=== PATIENT | male | born 1955 | race Caucasian/White ===

== ENCOUNTER 2018-05-21 15:50 | Observation (INO) ==
--- NOTE | 2018-05-21 16:18 | Emergency Department Note ---
Disposition Clinical Impression: Hypokalemia Sepsis Qualifiers: Sepsis type: sepsis due to unspecified organism Qualified Code(s): A41.9 - Sepsis, unspecified organism Cellulitis Qualifiers: Site of cellulitis: extremity Site of cellulitis of extremity: lower extremity Laterality: left Qualified Code(s): L03.116 - Cellulitis of left lower limb UTI (urinary tract infection) Qualifiers: Urinary tract infection type: site unspecified Hematuria presence: without hematuria Qualified Code(s): N39.0 - Urinary tract infection, site not specified Disposition: Admitted As Inpatient Condition: Fair Referrals: Boyd Chacon MD [Primary Care Provider] - Forms: ED Satisfaction Letter Time of Disposition: 17:42 Extremity Problem HPI - General Chief complaint: ED Extremity Problem,Nontraumatic Stated complaint: cellulitis LLE and possible sepsis Time Seen by Provider: 05/21/18 16:18 Source: patient Mode of arrival: ambulatory Limitations: no limitations Nursing Notes Reviewed: Yes Vital Signs Reviewed: Yes - History of Present Illness HPI Narrative: Patient is a 62-year-old male with past medical history of TIA, gout, hypertension. He presents today due to concern for left lower extremity cellulitis, possible sepsis. He was a referral from his primary care physician Dr. Chacon with concern for sepsis. Patient states that he has a history of left lower 70 cellulitis. He was treated about 3 months ago with an oral antibiotic and states that it cleared up. However, he has had some redness over the past several days of the left lower extremity. He has felt generally overall unwell, fatigue, decreased appetite. Denies any chest pain, shortness of breath, productive cough, nausea, vomiting, fevers, diarrhea. Denies any hematuria but does admit to some mild dysuria. No other penile discharge. He is not currently on any antibiotics. Pain Scale: 0 - Related Data Allergies Allergy/AdvReac Type Severity Reaction Status Date / Time lisinopril Allergy Hives Verified 05/21/18 15:51 All systems ED: reviewed and negative except as stated. Constitutional: Denies: fever Cardiovascular: Denies: chest pain, palpitations Respiratory: Denies: cough, dyspnea, wheezes Gastrointestinal: Denies: abdominal pain, nausea, vomiting, diarrhea, constipation Genitourinary: Reports: dysuria. Denies: urgency, frequency, hematuria Musculoskeletal: Denies: back pain Integumentary: Denies: rash Neurological: Denies: headache, weakness, numbness Endocrine: Reports: fatigue Past Medical History - Past Medical History Attestation: Yes The following information was validated with the patient. Source: patient Physical Exam - General Limitations: no limitations General appearance: alert, in no apparent distress - Head Head exam: atraumatic, normocephalic, normal inspection - Eye Eye exam: Present: normal appearance, PERRL, EOMI - ENT ENT exam: normal exam, normal oropharynx, mucous membranes moist - Neck Neck exam: Present: normal inspection, full ROM, trachea midline - Chest Chest inspection: Present: normal inspection, symmetric chest wall rise - Respiratory Respiratory exam: Present: normal lung sounds bilaterally - Cardiovascular Cardiovascular exam: Present: regular rate, normal rhythm, normal heart sounds - Abdominal Exam Abdominal exam: Present: soft, Non-Tender. Absent: tenderness, distention, guarding, rebound, rigidity - Extremities Exam Extremities exam: Present: other (Erythema of the left lower extremity from mid calf down to ankle. Also erythema of the left great toe. Bilateral foot gouty arthropathy. No crepitus.) - Neurological Exam Neurological exam: Present: alert, oriented X3 - Psychiatric Psychiatric exam: Present: normal affect, normal mood - Skin Skin exam: Present: warm, dry, intact Course Course Narrative: Patient was febrile, tachycardic on presentation. Physical exam shows: Erythema of the left lower extremity from mid calf down to ankle. Also erythema of the left great toe. Bilateral foot gouty arthropathy. No crepitus. Currently concern for sepsis secondary to left lower extremity cellulitis. We will set the patient on vancomycin and Zosyn. We will give the patient sepsis fluid bolus, obtain basic lab work, lactic, blood cultures, CRP, ESR, blood cultures. We will also obtain an x-ray of the left tib-fib and left foot to assess for any gas. 17:31 patient given Tylenol for fever. patient had elevated white blood cell count. UA shows positive nitrite and leukocyte Estrace. Patient already covered with vancomycin and Zosyn. X-rays showed no evidence of any subcutaneous gas. There is evidence of cellulitis. Patient meets sepsis criteria. We will admit to the hospital for cellulitis/sepsis. Patient also had hypokalemia. Oral replacement ordered in the ER. Foot X-Ray 05/21/18 16:39 IMPRESSION: 1. Evidence of tophaceous gout involving the 1st MTP joint. 2. Soft tissue swelling involving the left 1st digit, which could be related cellulitis. No subcutaneous gas is visualized. D/ / Giovanni Cruz MD / Giovanni Cruz MD Interpreting Provider: Giovanni Cruz MD Tibia/Fibula X-Ray 05/21/18 16:39 IMPRESSION: 1. Evidence of tophaceous gout involving the 1st MTP joint. 2. Soft tissue swelling involving the left 1st digit, which could be related cellulitis. No subcutaneous gas is visualized. D/ / Giovanni Cruz MD / Giovanni Cruz MD Interpreting Provider: Giovanni Cruz MD Vital Signs Temperature 100.2 F H 05/21/18 15:52 Pulse Rate 119 05/21/18 15:52 Respiratory Rate 20 05/21/18 15:52 Blood Pressure 190/90 05/21/18 15:52 O2 Sat by Pulse Oximetry 95 05/21/18 15:52 Temperature 100.2 F H 05/21/18 16:17 Pulse Rate 107 05/21/18 17:36 Respiratory Rate 20 05/21/18 16:27 Blood Pressure 132/96 05/21/18 17:36 O2 Sat by Pulse Oximetry 96 05/21/18 17:36 Oxygen Delivery Oxygen Delivery Room Air Extremity Problem, Nontraumati - [facility] Narrative Medical decision making narrative: Patient was febrile, tachycardic on presentation. Physical exam shows: Erythema of the left lower extremity from mid calf down to ankle. Also erythema of the left great toe. Bilateral foot gouty arthropathy. No crepitus. Currently concern for sepsis secondary to left lower extremity cellulitis. We will set the patient on vancomycin and Zosyn. We will give the patient sepsis fluid bolus, obtain basic lab work, lactic, blood cultures, CRP, ESR, blood cultures. We will also obtain an x-ray of the left tib-fib and left foot to assess for any gas. 17:31 patient given Tylenol for fever. patient had elevated white blood cell count. UA shows positive nitrite and leukocyte Estrace. Patient already covered with vancomycin and Zosyn. X-rays showed no evidence of any subcutaneous gas. There is evidence of cellulitis. Patient meets sepsis criteria. We will admit to the hospital for cellulitis/sepsis. Patient also had hypokalemia. Oral replacement ordered in the ER. - Medical Records Medical records reviewed: Yes I reviewed the patient's medical records. - Lab Data Lab results reviewed: Yes I reviewed the patient's lab results. Result diagrams: 05/21/18 16:05 05/21/18 16:33 Lab Results 05/21/18 05/21/18 05/21/18 Range/Units 16:05 16:05 16:05 WBC 13.3 H (4.3-11.1) K/mcL RBC 4.62 (4.19-5.50) M/mcL Hgb 15.2 (12.9-16.9) g/dL Hct 42.0 (37.5-50.1) % MCV 90.9 (83.0-100.0) fL MCH 32.9 (28.0-33.3) pg MCHC 36.2 H (31.6-35.5) g/dL RDW 12.1 (11.5-14.5) % Plt Count 146 (140-400) K/mcL MPV 9.9 (9.4-12.4) fL Immature Gran % 0.5 (0-4) % Seg Neutrophils % 89.7 % Lymphocytes % 2.4 % Monocytes % 6.9 % Eosinophils % 0.2 % Basophils % 0.3 % Neutrophils # 11.9 H (1.6-8.9) K/mcL Lymphocytes # 0.3 L (0.6-4.6) K/mcL Monocytes # 0.9 (0.0-1.3) K/mcL Eosinophils # 0.0 (0.0-0.6) K/mcL Basophils # 0.0 (0.0-0.2) K/mcL ESR 8 (0-10) mm/hr PT 13.6 H (9.4-12.1) Seconds INR 1.2 APTT 28.9 (26.0-36.0) Seconds Sodium (136-145) mEq/L Potassium (3.5-5.1) mEq/L Chloride (98-107) mEq/L Carbon Dioxide (23-29) mEq/L BUN (8-23) mg/dL Creatinine (0.70-1.30) mg/dL Est GFR ( Amer) (> 60) Est GFR (Non-Af Amer) (> 60) BUN/Creatinine Ratio (6-26) Glucose (70-105) mg/dL Calculated Osmolality (280-300) Lactic Acid (0.5-2.2) mmol/L Uric Acid (2.3-7.6) mg/dL Calcium (8.6-10.3) mg/dL Phosphorus (2.7-4.5) mg/dL Magnesium (1.6-2.6) mg/dL Total Bilirubin (0.3-1.0) mg/dL Direct Bilirubin (0.0-0.2) mg/dL Indirect Bilirubin (0.0-1.2) mg/dL AST (13-39) Units/L ALT (7-52) Units/L Alkaline Phosphatase (34-104) Units/L Troponin I (< 0.04) ng/mL C-Reactive Protein (Less than 10) mg/L Serum Total Protein (6.4-8.9) g/dL Albumin (3.5-5.7) g/dL Globulin (2.4-3.5) g/dL Albumin/Globulin Ratio (1.1-2.2) Urine Color (Yellow) Urine Clarity (Clear) Urine pH (5.0-8.0) pH Units Ur Specific [place] (1.010-1.025) Urine Protein (Neg-Trace) mg/dL Urine Glucose (UA) (Normal) mg/dL Urine Ketones (Negative) mg/dL Urine Blood (Negative) Urine Nitrite (Negative) Urine Bilirubin (Negative) Urine Urobilinogen (Normal) mg/dL Ur Leukocyte Esterase (Negative) Urine Microscopic RBC (0-3) per hpf Urine Microscopic WBC (0-3) per hpf Ur Squamous Epith Cells (None-Few) per lpf Urine Bacteria (None-Few) per hpf Hyaline Casts (None-Few) per lpf Urine Mucus (Few) Ur Culture Indicated? (NO) 05/21/18 05/21/18 05/21/18 Range/Units 16:33 16:33 16:48 WBC (4.3-11.1) K/mcL RBC (4.19-5.50) M/mcL Hgb (12.9-16.9) g/dL Hct (37.5-50.1) % MCV (83.0-100.0) fL MCH (28.0-33.3) pg MCHC (31.6-35.5) g/dL RDW (11.5-14.5) % Plt Count (140-400) K/mcL MPV (9.4-12.4) fL Immature Gran % (0-4) % Seg Neutrophils % % Lymphocytes % % Monocytes % % Eosinophils % % Basophils % % Neutrophils # (1.6-8.9) K/mcL Lymphocytes # (0.6-4.6) K/mcL Monocytes # (0.0-1.3) K/mcL Eosinophils # (0.0-0.6) K/mcL Basophils # (0.0-0.2) K/mcL ESR (0-10) mm/hr PT (9.4-12.1) Seconds INR APTT (26.0-36.0) Seconds Sodium 133 L (136-145) mEq/L Potassium 3.1 L (3.5-5.1) mEq/L Chloride 98 (98-107) mEq/L Carbon Dioxide 25 (23-29) mEq/L BUN 11 (8-23) mg/dL Creatinine 0.99 (0.70-1.30) mg/dL Est GFR ( Amer) > 60 (> 60) Est GFR (Non-Af Amer) > 60 (> 60) BUN/Creatinine Ratio 11 (6-26) Glucose 150 H (70-105) mg/dL Calculated Osmolality 278 L (280-300) Lactic Acid 1.0 (0.5-2.2) mmol/L Uric Acid 7.3 (2.3-7.6) mg/dL Calcium 9.3 (8.6-10.3) mg/dL Phosphorus 1.9 L (2.7-4.5) mg/dL Magnesium 1.6 (1.6-2.6) mg/dL Total Bilirubin 2.1 H (0.3-1.0) mg/dL Direct Bilirubin 0.6 H (0.0-0.2) mg/dL Indirect Bilirubin 1.5 H (0.0-1.2) mg/dL AST 31 (13-39) Units/L ALT 27 (7-52) Units/L Alkaline Phosphatase 97 (34-104) Units/L Troponin I < 0.03 (< 0.04) ng/mL C-Reactive Protein 202 H (Less than 10) mg/L Serum Total Protein 7.1 (6.4-8.9) g/dL Albumin 4.4 (3.5-5.7) g/dL Globulin 2.7 (2.4-3.5) g/dL Albumin/Globulin Ratio 1.6 (1.1-2.2) Urine Color Dark Yellow (Yellow) Urine Clarity Cloudy A (Clear) Urine pH 6.0 (5.0-8.0) pH Units Ur Specific [place] 1.024 (1.010-1.025) Urine Protein 100 H (Neg-Trace) mg/dL Urine Glucose (UA) Normal (Normal) mg/dL Urine Ketones 15 H (Negative) mg/dL Urine Blood Negative (Negative) Urine Nitrite Positive A (Negative) Urine Bilirubin Small H (Negative) Urine Urobilinogen Normal (Normal) mg/dL Ur Leukocyte Esterase Moderate H (Negative) Urine Microscopic RBC 3-5 H (0-3) per hpf Urine Microscopic WBC 15-30 H (0-3) per hpf Ur Squamous Epith Cells Many H (None-Few) per lpf Urine Bacteria None Seen (None-Few) per hpf Hyaline Casts None Seen (None-Few) per lpf Urine Mucus Many H (Few) Ur Culture Indicated? NO. A (NO) - Radiology Data Radiology results reviewed: Yes I reviewed the patient's radiology results. Foot X-Ray 05/21/18 16:39 IMPRESSION: 1. Evidence of tophaceous gout involving the 1st MTP joint. 2. Soft tissue swelling involving the left 1st digit, which could be related cellulitis. No subcutaneous gas is visualized. D/ / Giovanni Cruz MD / Giovanni Cruz MD Interpreting Provider: Giovanni Cruz MD Tibia/Fibula X-Ray 05/21/18 16:39 IMPRESSION: 1. Evidence of tophaceous gout involving the 1st MTP joint. 2. Soft tissue swelling involving the left 1st digit, which could be related cellulitis. No subcutaneous gas is visualized. D/ / Giovanni Cruz MD / Giovanni Cruz MD Interpreting Provider: Giovanni Cruz MD - EKG Data EKG attestation: Yes I reviewed and interpreted this EKG. EKG results narrative: 05/21/2018 at 16:36. Sinus tachycardia. Rate 109. VA 156. QRS 93. QTC 3 984. Normal axis. No acute ST elevation or depression. T-wave inversion in lead 3, no previous EKG for comparison. S.Jorge A.Raffaele - Armando Situation: Demographics, MOA Background: Presenting Complaint, Relevant PMH, Meds, & Allergies Assessment: Vital Signs, Course and respsone to treatment, Exam Concerns, Patient/Family Expectation, Pertinant Lab Results Recommendation: Barrier(s) to disposition, Recommendation based on pending studies, treatments, or consults S.B.A.Jose Report Given to: Jabari Roberts [facility] Time: 17:42 Attestation Statement - Attestation Attestation: I, Don Shrestha DO, examined this patient [id number] and my medical decision-making was reviewed with Dr. Power Rico, Resident Physician. I agree with the documented findings, disposition and treatment plan as described except to the extent set forth below. Please see my progress notes for details.
[2018-05-21] MEDS ORDERED: Piperacillin/Tazobactam 3.375 GM in 0.9 % Sodium Chloride Mini Bag 100 ML IVPB ONE (16:39)
[2018-05-21 16:47] LABS: Basophils % 0.3 %; Eosinophils % 0.2 %; Hemoglobin 15.2 g/dL (12.9-16.9); Immature Granulocytes % 0.5 % (0-4); Lymphocytes # 0.3 K/mcL (0.6-4.6); Lymphocytes % 2.4 %; Mean Corpuscular HGB Conc 36.2 g/dL (31.6-35.5); Mean Corpuscular Hemoglobin 32.9 pg (28.0-33.3); Mean Corpuscular Volume 90.9 fL (83.0-100.0); Mean Platelet Volume 9.9 fL (9.4-12.4); Monocytes # 0.9 K/mcL (0.0-1.3); Monocytes % 6.9 %; Neutrophils # 11.9 K/mcL (1.6-8.9); Platelet Count 146 K/mcL (140-400); Red Blood Count 4.62 M/mcL (4.19-5.50); Red Cell Distribution Width 12.1 % (11.5-14.5); Segmented Neutrophils % 89.7 %
[2018-05-21 16:55] LABS: INR 1.2; Prothrombin Time 13.6 Seconds (9.4-12.1)
[2018-05-21 16:58] LABS: Activated Partial Thrombo Time 28.9 Seconds (26.0-36.0)
[2018-05-21 17:01] LABS: Bilirubin,Urine Small (Negative); Blood,Urine Negative (Negative); Clarity,Urine Cloudy (Clear); Glucose,Urine (UA) Normal (Normal); Ketones,Urine 15 mg/dL (Negative); Leukocyte Esterase,Urine Moderate (Negative); Nitrite,Urine Positive (Negative); Protein,Urine 100 mg/dL (Neg-Trace); Specific Gravity,Urine 1.024 (1.010-1.025); Urobilinogen,Urine Normal (Normal)
[2018-05-21 17:02] LABS: Bacteria,Urine None Seen per hpf (None-Few); Squamous Epithelial Cell,Urine Many per lpf (None-Few); WBC,Urine 15-30 per hpf (0-3)
[2018-05-21 17:04] LABS: Color,Urine Dark Yellow (Yellow)
[2018-05-21 17:14] LABS: Hyaline Casts,Urine None Seen per lpf (None-Few); Mucus,Urine Many (Few)
[2018-05-21 17:16] LABS: Alanine Aminotransferase 27 Units/L (7-52); Albumin 4.4 g/dL (3.5-5.7); Albumin/Globulin Ratio 1.6 (1.1-2.2); Alkaline Phosphatase 97 Units/L (34-104); Aspartate Amino Transferase 31 Units/L (13-39); BUN/Creatinine Ratio 11 (6-26); Bilirubin,Direct 0.6 mg/dL (0.0-0.2); Bilirubin,Indirect 1.5 mg/dL (0.0-1.2); Bilirubin,Total 2.1 mg/dL (0.3-1.0); Blood Urea Nitrogen 11 mg/dL (8-23); C-Reactive Protein 202 mg/L (Less than 10); Calcium 9.3 mg/dL (8.6-10.3); Carbon Dioxide 25 mEq/L (23-29); Chloride 98 mEq/L (98-107); Globulin 2.7 g/dL (2.4-3.5); Glucose 150 mg/dL (70-105); Magnesium 1.6 mg/dL (1.6-2.6); Osmolality,Calculated 278 (280-300); Phosphorous 1.9 mg/dL (2.7-4.5); Potassium 3.1 mEq/L (3.5-5.1); Sodium 133 mEq/L (136-145); Total Protein 7.1 g/dL (6.4-8.9); Troponin I < 0.03 ng/mL (< 0.04); Uric Acid 7.3 mg/dL (2.3-7.6); eGFR For African Americans > 60 (> 60); eGFR For Non-African Americans > 60 (> 60)
[2018-05-21] MEDS ORDERED: Potassium Chloride Elixir 20 MEQ/15 ML UDC PO ONE (17:26)
[2018-05-21] MEDS: 0.9 % Sodium Chloride 1,000 ML IVC SCH ×3 (17:32→20:20)
--- NOTE | 2018-05-21 17:50 | Emergency Department Note ---
Disposition Clinical Impression: Hypokalemia Sepsis Qualifiers: Sepsis type: sepsis due to unspecified organism Qualified Code(s): A41.9 - Sepsis, unspecified organism Cellulitis Qualifiers: Site of cellulitis: extremity Site of cellulitis of extremity: lower extremity Laterality: left Qualified Code(s): L03.116 - Cellulitis of left lower limb UTI (urinary tract infection) Qualifiers: Urinary tract infection type: site unspecified Hematuria presence: without hematuria Qualified Code(s): N39.0 - Urinary tract infection, site not specified Disposition: Admitted As Inpatient Condition: Fair Referrals: Boyd Chacon MD [Primary Care Provider] - Forms: ED Satisfaction Letter Time of Disposition: 17:50 General Adult HPI - General Chief complaint: ED Extremity Problem,Nontraumatic Stated complaint: cellulitis LLE and possible sepsis Time Seen by Provider: 05/21/18 16:18 Source: patient Mode of arrival: ambulatory Limitations: no limitations - History of Present Illness Pain Scale: 0 - Related Data Allergies Allergy/AdvReac Type Severity Reaction Status Date / Time lisinopril Allergy Hives Verified 05/21/18 15:51 Constitutional: Denies: fever Cardiovascular: Denies: chest pain, palpitations Respiratory: Denies: cough, dyspnea, wheezes Gastrointestinal: Denies: abdominal pain, nausea, vomiting, diarrhea, constipation Genitourinary: Reports: dysuria. Denies: urgency, frequency, hematuria Musculoskeletal: Denies: back pain Integumentary: Denies: rash Neurological: Denies: headache, weakness, numbness Endocrine: Reports: fatigue Past Medical History - Past Medical History Medical history: Reports: hypertension Psychiatric history: Reports: no psych history - Social History Smoking Status: Never smoker Smokeless Tobacco Status: No Alcohol use: Reports: occasionally Drug use: Reports: none Physical Exam - General Limitations: no limitations General appearance: alert, in no apparent distress Course Vital Signs Temperature 100.2 F H 05/21/18 15:52 Pulse Rate 119 05/21/18 15:52 Respiratory Rate 20 05/21/18 15:52 Blood Pressure 190/90 05/21/18 15:52 O2 Sat by Pulse Oximetry 95 05/21/18 15:52 Temperature 100.2 F H 05/21/18 16:17 Pulse Rate 107 05/21/18 17:36 Respiratory Rate 20 07/19/18 16:27 Blood Pressure 132/96 05/21/18 17:36 O2 Sat by Pulse Oximetry 96 05/21/18 17:36 Oxygen Delivery Oxygen Delivery Room Air Medical Decision Making - Lab Data Result diagrams: 05/21/18 16:05 05/21/18 16:33 Lab Results 05/21/18 05/21/18 05/21/18 Range/Units 16:05 16:05 16:05 WBC 13.3 H (4.3-11.1) K/mcL RBC 4.62 (4.19-5.50) M/mcL Hgb 15.2 (12.9-16.9) g/dL Hct 42.0 (37.5-50.1) % MCV 90.9 (83.0-100.0) fL MCH 32.9 (28.0-33.3) pg MCHC 36.2 H (31.6-35.5) g/dL RDW 12.1 (11.5-14.5) % Plt Count 146 (140-400) K/mcL MPV 9.9 (9.4-12.4) fL Immature Gran % 0.5 (0-4) % Seg Neutrophils % 89.7 % Lymphocytes % 2.4 % Monocytes % 6.9 % Eosinophils % 0.2 % Basophils % 0.3 % Neutrophils # 11.9 H (1.6-8.9) K/mcL Lymphocytes # 0.3 L (0.6-4.6) K/mcL Monocytes # 0.9 (0.0-1.3) K/mcL Eosinophils # 0.0 (0.0-0.6) K/mcL Basophils # 0.0 (0.0-0.2) K/mcL ESR 8 (0-10) mm/hr PT 13.6 H (9.4-12.1) Seconds INR 1.2 APTT 28.9 (26.0-36.0) Seconds Sodium (136-145) mEq/L Potassium (3.5-5.1) mEq/L Chloride (98-107) mEq/L Carbon Dioxide (23-29) mEq/L BUN (8-23) mg/dL Creatinine (0.70-1.30) mg/dL Est GFR ( Amer) (> 60) Est GFR (Non-Af Amer) (> 60) BUN/Creatinine Ratio (6-26) Glucose (70-105) mg/dL Calculated Osmolality (280-300) Lactic Acid (0.5-2.2) mmol/L Uric Acid (2.3-7.6) mg/dL Calcium (8.6-10.3) mg/dL Phosphorus (2.7-4.5) mg/dL Magnesium (1.6-2.6) mg/dL Total Bilirubin (0.3-1.0) mg/dL Direct Bilirubin (0.0-0.2) mg/dL Indirect Bilirubin (0.0-1.2) mg/dL AST (13-39) Units/L ALT (7-52) Units/L Alkaline Phosphatase (34-104) Units/L Troponin I (< 0.04) ng/mL C-Reactive Protein (Less than 10) mg/L Serum Total Protein (6.4-8.9) g/dL Albumin (3.5-5.7) g/dL Globulin (2.4-3.5) g/dL Albumin/Globulin Ratio (1.1-2.2) Urine Color (Yellow) Urine Clarity (Clear) Urine pH (5.0-8.0) pH Units Ur Specific [place] (1.010-1.025) Urine Protein (Neg-Trace) mg/dL Urine Glucose (UA) (Normal) mg/dL Urine Ketones (Negative) mg/dL Urine Blood (Negative) Urine Nitrite (Negative) Urine Bilirubin (Negative) Urine Urobilinogen (Normal) mg/dL Ur Leukocyte Esterase (Negative) Urine Microscopic RBC (0-3) per hpf Urine Microscopic WBC (0-3) per hpf Ur Squamous Epith Cells (None-Few) per lpf Urine Bacteria (None-Few) per hpf Hyaline Casts (None-Few) per lpf Urine Mucus (Few) Ur Culture Indicated? (NO) 05/21/18 05/21/18 05/21/18 Range/Units 16:33 16:33 16:48 WBC (4.3-11.1) K/mcL RBC (4.19-5.50) M/mcL Hgb (12.9-16.9) g/dL Hct (37.5-50.1) % MCV (83.0-100.0) fL MCH (28.0-33.3) pg MCHC (31.6-35.5) g/dL RDW (11.5-14.5) % Plt Count (140-400) K/mcL MPV (9.4-12.4) fL Immature Gran % (0-4) % Seg Neutrophils % % Lymphocytes % % Monocytes % % Eosinophils % % Basophils % % Neutrophils # (1.6-8.9) K/mcL Lymphocytes # (0.6-4.6) K/mcL Monocytes # (0.0-1.3) K/mcL Eosinophils # (0.0-0.6) K/mcL Basophils # (0.0-0.2) K/mcL ESR (0-10) mm/hr PT (9.4-12.1) Seconds INR APTT (26.0-36.0) Seconds Sodium 133 L (136-145) mEq/L Potassium 3.1 L (3.5-5.1) mEq/L Chloride 98 (98-107) mEq/L Carbon Dioxide 25 (23-29) mEq/L BUN 11 (8-23) mg/dL Creatinine 0.99 (0.70-1.30) mg/dL Est GFR ( Amer) > 60 (> 60) Est GFR (Non-Af Amer) > 60 (> 60) BUN/Creatinine Ratio 11 (6-26) Glucose 150 H (70-105) mg/dL Calculated Osmolality 278 L (280-300) Lactic Acid 1.0 (0.5-2.2) mmol/L Uric Acid 7.3 (2.3-7.6) mg/dL Calcium 9.3 (8.6-10.3) mg/dL Phosphorus 1.9 L (2.7-4.5) mg/dL Magnesium 1.6 (1.6-2.6) mg/dL Total Bilirubin 2.1 H (0.3-1.0) mg/dL Direct Bilirubin 0.6 H (0.0-0.2) mg/dL Indirect Bilirubin 1.5 H (0.0-1.2) mg/dL AST 31 (13-39) Units/L ALT 27 (7-52) Units/L Alkaline Phosphatase 97 (34-104) Units/L Troponin I < 0.03 (< 0.04) ng/mL C-Reactive Protein 202 H (Less than 10) mg/L Serum Total Protein 7.1 (6.4-8.9) g/dL Albumin 4.4 (3.5-5.7) g/dL Globulin 2.7 (2.4-3.5) g/dL Albumin/Globulin Ratio 1.6 (1.1-2.2) Urine Color Dark Yellow (Yellow) Urine Clarity Cloudy A (Clear) Urine pH 6.0 (5.0-8.0) pH Units Ur Specific [place] 1.024 (1.010-1.025) Urine Protein 100 H (Neg-Trace) mg/dL Urine Glucose (UA) Normal (Normal) mg/dL Urine Ketones 15 H (Negative) mg/dL Urine Blood Negative (Negative) Urine Nitrite Positive A (Negative) Urine Bilirubin Small H (Negative) Urine Urobilinogen Normal (Normal) mg/dL Ur Leukocyte Esterase Moderate H (Negative) Urine Microscopic RBC 3-5 H (0-3) per hpf Urine Microscopic WBC 15-30 H (0-3) per hpf Ur Squamous Epith Cells Many H (None-Few) per lpf Urine Bacteria None Seen (None-Few) per hpf Hyaline Casts None Seen (None-Few) per lpf Urine Mucus Many H (Few) Ur Culture Indicated? NO. A (NO) Attestation Statement - Attestation Attestation: I, Don Shrestha DO, examined this patient [id number] and my medical decision-making was reviewed with Dr. Power Rico, Resident Physician. I agree with the documented findings, disposition and treatment plan as described except to the extent set forth below. Please see my progress notes for details. 61-year-old male presents emergency room from his primary care provider's office today. Patient was sent in for possible infectious etiology. Patient has long-standing medical issues including chronic gout. 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 The bilateral lower extremities of shown some progression of the redness and pain. Left lower extremities most effective here today with redness swelling and warmth to the lower extremities from the ankle proximal. He does have some visible excoriation to the anterior aspect of the martinez. Presentation here the patient was tachycardic and borderline febrile. He has been fighting the symptoms at home for several days. Denies any other issues at this time. Currently denying chest pain shortness of breath headache vision changes nausea vomiting or diarrhea. Denies any chills but has had intermittent fevers. Patient is concerning for septic-like presentation. Initially patient will have screening lab establishing CBC chemistr ESR CRP urinalysis . He will also have x-rays of the left lower extremity to rule out any bony deterioration. Antibiotics including the vancomycin and Zosyn. Patient is otherwise clinically stable at this point. He does not show any acute signs of hypotension or end organ dysfunction. Surgical material is medically initially with concern being the cellulitis is infectious etiology. No acute signs of shock at this time. Patient will be provided with fluids antibiotics and detailed workup to be established and completed. Disposition will most likely be admission to hospital. Physical exam is otherwise unremarkable except for the affected extremity from the knee down. He does have good pulses in the DP and PT distribution. He has chronic swelling to the great toes bilaterally that appears to be stable according to him. He also has multiple other areas of gouty tophi. Uric acid ESR and CRP are still pending. Disposition to be determined. See detailed documentation of the physical exam, medical intervention, medical decision-making and disposition in the resident physician' s note. No critical care provider the patient's treatment course at this time. 1720 Patient's labs do show an elevated white blood cell count. Sepsis was determined at this time considering the patient's presentation consistent findings with cellulitis. There is no free air underneath the tissue in the left lower extremity after x-ray imaging was completed. Antibiotic regimen has been started. Admission process to be established. Patient is otherwise clinically stable. Hospitalist reviewed the case in length. No other recommendations or concerns noted this time. Patient will be admitted for what appears to be sepsis secondary to cellulitis. Medical regimen and symptom control have been completed. Patient says it is feeling better after the fluids have been provided. We will continue to monitor here until admission process is established
[2018-05-21] MEDS ORDERED: Acetaminophen 325 MG TABLET PO PRN (22:45)
[2018-05-21] MEDS ORDERED: 0.9 % Sodium Chloride 1,000 ML IVC ONE (22:45)
[2018-05-21] MEDS ORDERED: Naloxone 0.4 MG/ML INJ IVP PRN (22:45)
[2018-05-21] MEDS ORDERED: Colchicine 0.6 MG TABLET PO ONE (22:51)
[2018-05-21] MEDS ORDERED: Vancomycin (wt based) 1,000 MG VIAL IVPB SCH (23:00)
[2018-05-22] MEDS ORDERED: *HR* HYDROcodone/Acet 5/325 mg TABLET ONE (00:47)
[2018-05-22] MEDS ORDERED: 0.9 % Sodium Chloride 1,000 ML ONE (00:48)
[2018-05-22] MEDS ORDERED: Piperacillin/Tazobactam 3.375 GM VIAL ONE (00:48)
[2018-05-22] MEDS ORDERED: 0.9 % Sodium Chloride Mini Bag 100 ML ONE (00:49)
[2018-05-22] MEDS ORDERED: Acetaminophen 325 MG TABLET PO ONE (01:12)
[2018-05-22] MEDS ORDERED: Colchicine 0.6 MG TABLET PO ONE (06:51)
[2018-05-22] MEDS ORDERED: *HR* HYDROcodone/Acet 5/325 mg TABLET PO PRN (08:28)
[2018-05-22] MEDS ORDERED: 0.9 % Sodium Chloride 1,000 ML IV SCH (08:30)
[2018-05-22 09:59] LABS: Basophils # 0.1 K/mcL (0.0-0.2); Basophils % 0.5 %; Eosinophils # 0.1 K/mcL (0.0-0.6); Eosinophils % 1.4 %; Hemoglobin 14.3 g/dL (12.9-16.9); Immature Granulocytes % 0.7 % (0-4); Lymphocytes # 0.7 K/mcL (0.6-4.6); Lymphocytes % 6.8 %; Mean Corpuscular HGB Conc 35.8 g/dL (31.6-35.5); Mean Corpuscular Hemoglobin 33.4 pg (28.0-33.3); Mean Corpuscular Volume 93.5 fL (83.0-100.0); Mean Platelet Volume 10.6 fL (9.4-12.4); Monocytes # 0.6 K/mcL (0.0-1.3); Neutrophils # 8.4 K/mcL (1.6-8.9); Red Blood Count 4.28 M/mcL (4.19-5.50); Red Cell Distribution Width 12.7 % (11.5-14.5); Segmented Neutrophils % 84.6 %
[2018-05-22 10:52] LABS: BUN/Creatinine Ratio 11 (6-26); Blood Urea Nitrogen 8 mg/dL (8-23); Calcium 8.5 mg/dL (8.6-10.3); Carbon Dioxide 23 mEq/L (23-29); Chloride 110 mEq/L (98-107); Glucose 114 mg/dL (70-105); Magnesium 1.7 mg/dL (1.6-2.6); Osmolality,Calculated 277 (280-300); Potassium 3.3 mEq/L (3.5-5.1); Sodium 134 mEq/L (136-145); eGFR For African Americans > 60 (> 60); eGFR For Non-African Americans > 60 (> 60)
[2018-05-22] MEDS: 0.9 % Sodium Chloride 1,000 ML IVC SCH ×2 (11:25→11:28)
[2018-05-22] MEDS: Piperacillin/Tazobactam 3.375 GM in 0.9 % Sodium Chloride Mini Bag 100 ML IVPB SCH ×3 (11:26→18:00)
[2018-05-22] MEDS: *HR* Heparin 5,000 UNIT/ML VIAL SQ SCH ×2 (11:28→18:01)
[2018-05-22] MEDS: Colchicine 0.6 MG TABLET PO SCH ×2 (11:29→20:24)
[2018-05-22] MEDS: Omega-3/Dha/Epa/Fish Oil [Fish Oil 1,000 Mg Softgel] PO SCH (11:29)
[2018-05-22] MEDS: Multivit/Ca/Min/Fe/FA 1 TAB TABLET PO SCH (11:29)
[2018-05-22] MEDS: amLODIPine 5 MG TABLET PO SCH (11:29)
[2018-05-22] MEDS: Fenofibrate 54 MG TABLET PO SCH (11:29)
[2018-05-22] MEDS: POTAS PO SCH (11:29)
[2018-05-22] MEDS: Bisoprolol/HCTZ 10/6.25 TABLET PO SCH (11:30)
[2018-05-22 11:54] LABS: Platelet Count 83 K/mcL (140-400)
[2018-05-22 11:59] LABS: Platelet Estimate Decreased (Normal)
--- NOTE | 2018-05-22 11:59 | Electrocardiograph Report ---
[place] [id number] Test Date: 2018-05-21 Pat Name: Omar Berry Department: 104 Room: 3B46 Gender: M Testing Director: PHOEBE : [id number] Requested By: Power Rico Order Number: [id number] Reading MD: Josh Cade Measurements Intervals [place] Rate: 109 P: -7 SC: 156 QRS: 2 QRSD: 93 T: -2 QT: 320 QTc: 384 Interpretive Statements SINUS TACHYCARDIA ABNORMAL RHYTHM ECG Electronically Signed On 05-22-2018 11:57:20 EDT by Josh Cade
[2018-05-22] MEDS ORDERED: Aminoglycoside Consult 1 EACH MC ONE (13:02)
[2018-05-22] MEDS: Ibuprofen 600 MG TABLET PO PRN ×2 (14:11→22:53)
--- NOTE | 2018-05-22 15:29 | Internal Med Progress Note ---
Date of Encounter: 05/22/18 Time of Encounter: 15:22 - Assessment and plan (1) Cellulitis Current Visit: Yes Status: Acute Assessment and plan: 62-year-old male with past medical history of gout presented with left leg redness, pain and the left foot swelling. Patient had a long history of gout with tophi. He had a tophi removal years ago ( at the left Achilles tendon), ever since he frequently had left leg cellulitis. - Cellulitis was suspected, patient was started on Zosyn and vancomycin. - Left big toe swelling and redness, suspicious for gout flare, patient started on colchicine, uric acid 7.3, we will will increase the dose of allopurinol to achieve uric acid level less than 6.5. - Blood culture pending. - Podiatry consult. Qualifiers: Site of cellulitis: extremity Site of cellulitis of extremity: lower extremity Laterality: left Qualified Code(s): L03.116 - Cellulitis of left lower limb (2) Gout Current Visit: No Status: Chronic Assessment and plan: - Described as above. 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 Left big toe started turning back. He has no fever, chills, or night sweats. - Constitutional Vitals: Temp Pulse Resp BP Pulse Ox 98.7 F 79 17 139/76 97 05/22/18 11:16 05/22/18 11:16 05/22/18 11:16 05/22/18 11:16 05/22/18 11:16 General appearance: Present: A&O X 3 Exam: PHYSICAL EXAMINATION: GENERAL APPEARANCE: The patient is alert, oriented and in no acute distress. HEENT: Head is normocephalic. The sinuses are nontender. Pupils are equal and reactive. The nares are patent. Oropharynx clear without lesions. NECK: Supple without lymphadenopathy. HEART: Regular rate and rhythm. LUNGS: No crackles or wheezes are heard. ABDOMEN: Soft, nontender, nondistended with good bowel sounds heard. Inguinal area is normal. EXTREMITIES: Left leg patchy redness noted, left big toe is swelling and red. Part of the skin is black. Several tophi noted on both feet. NEUROLOGICAL: Gross nonfocal. SKIN: Warm and dry without any rash. Internal Medicine: Result - Labs CBC & Chem 7: 05/22/18 04:17 05/22/18 04:17 Labs: Short CBC 05/22/18 Range/Units 04:17 WBC 9.9 (4.3-11.1) K/mcL Hgb 14.3 (12.9-16.9) g/dL Hct 40.0 (37.5-50.1) % Plt Count 83 L (140-400) K/mcL Neutrophils # 8.4 (1.6-8.9) K/mcL BMP 05/22/18 04:17 Sodium 134 L Potassium 3.3 L Chloride 110 H Carbon Dioxide 23 BUN 8 Creatinine 0.74 Glucose 114 H Calcium 8.5 L - ABG Interpretation ABG results: PT/INR, D-dimer PT 13.6 Seconds (9.4-12.1) H 05/21/18 16:05 Consult Discharge Plan - Plan Referrals: Boyd Chacon MD [Primary Care Provider] -
--- NOTE | 2018-05-22 17:30 | Podiatry Consult Note ---
Date of Encounter: 05/22/18 Time of Encounter: 17:00 Assessment and Plan (1) Cellulitis Status: Acute Excoriated draining rash to medial aspect of left leg tibial region and lateral right leg tibia region Continue antibiotic treatment for cellulitis Will order UNNA boot wraps for comfort Remove and change MWF Qualifiers: Site of cellulitis: extremity Site of cellulitis of extremity: lower extremity Laterality: left Qualified Code(s): L03.116 - Cellulitis of left lower limb (2) Gout Status: Chronic Acute Gout Attack with gouty tophi noted PLan: Assessed at bedside Active gout infection of the left great toe- fluctuance and sub ungual hematoma noted across dorsal aspect of toe proximal to nail base. 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 Patient had a long history of gout with tophi. Patient reports he had tophi removed from his left achilles years ago. Patient reports that he has had an ongoing rash to the medial aspect of the left leg for month but within the last 1-2 months it has opened up and drained occasionally. States it itches. Patient states he was applying some type of lotion but he is not sure what it was. Patient reported that swelling and redness of his left great toe started 1-2 days ago. Patient denies any fevers, chills, nv or flu like symptoms. Patient denies any calf pain or sob. - Cellulitis was suspected, patient was started on Zosyn and vancomycin per internal medicine. - per internal medicine- Left big toe swelling and redness, suspicious for gout flare, patient started on colchicine, uric acid 7.3, we will will increase the dose of allopurinol to achieve uric acid level less than 6.5. WBC 13.3 on admission. Past Med Surg Social Fam HX - Past Medical History Medical history: hypertension Additional medical history: GOUT Psychiatric history: no psych history - Past Surgical History Additional surgical history: Foot sx X5 FOR GOUT - Social History Smoking Status: Never smoker Smokeless Tobacco Status: No Alcohol use: occasionally Drug use: none - Family History Mother Living Status: Hx Family Cardiac Disorders: Yes (HTN) Medications and Allergies Amlodipine Besylate 10 mg PO DAILY 05/21/18 [History] Bisoprolol/HCTZ 10/6.25 [Ziac 10/6.25] 1 tab PO DAILY 05/21/18 [History] Fenofibrate [Tricor] 54 mg PO DAILY 05/21/18 [History] Multivit-Min/FA/Lycopen/Lutein [A Thru Z Select Multivit Tab] 1 tab PO DAILY [History] [place]-3/Dha/Epa/Fish Oil [Fish Oil 1,000 mg Softgel] 1 cap PO DAILY 05/21/18 [ History] Potassium Chloride [Klor-Con 10] 10 meq PO DAILY 05/21/18 [History] Allopurinol [Zyloprim 100 MG] 200 mg PO DAILY tablet 05/23/18 [Rx] Amoxicillin/Clavulanate [Augmentin] 875 mg PO BIDWM #20 tablet 05/23/18 [Rx] Colchicine [Colcrys] 0.6 mg PO BID #60 tablet 05/23/18 [Rx] Ibuprofen [Motrin] 600 mg PO Q8HR PRN #0 tablet 05/23/18 [Rx] 3 Allergy/AdvReac Type Severity Reaction Status Date / Time lisinopril Allergy Hives Verified 05/21/18 15:51 All Systems Reviewed: The remainder of the systems were reviewed and are negative Physical Exam - Constitutional Vitals: Temp Pulse Resp BP Pulse Ox 98.6 F 81 16 151/75 93 05/22/18 15:58 05/22/18 15:58 05/22/18 15:58 05/22/18 15:58 05/22/18 15:58 Exam: Awake alert and oriented Pulses palpable DP/PT bilaterally Cap refill <3 seconds to toes Sensation intact to moderate touch- minimal to light touch No calf pain with manual compression Muscle strength 5/5 and equal bilaterally Gross appearance of acute gout with gouty tophi noted to IP joint of left great toe. Severe edema, erythema and warmth surrounding joint with fluctuance noted acorss dorsal aspect of joint line. There is a hematoma noted to dorsal aspect of toe consistent with pressure from edema of joint. Scant bloody drainage noted to opening of hematoma site. Erythema of toe extends to mid foot. No ascending cellulitis noted Excoriation and dry yellow drainage noted along medial aspect of left leg and lateral aspect of right leg. Findings consistent with stasis dermatitis. Patient sattes areas itch and he scratches them which makes them bleed. Lateral deep scratch estrada are noted along legs. Mild surrounding erythema. Dry flaking skin. No ulcerations. Dry crusting yellow drainage noted Large amount of gouty tophi noted along right IP joint and bilateral MTP joints toe #5 and along achilles. No appearance of acute gout at other locations- patient denies any pain to other areas. Results - Labs Result Diagrams: 05/23/18 05:42 05/23/18 05:42 Labs: Abnormal lab results MCH 33.4 pg (28.0-33.3) H 05/22/18 04:17 MCHC 35.8 g/dL (31.6-35.5) H 05/22/18 04:17 Plt Count 83 K/mcL (140-400) L 05/22/18 04:17 Platelet Estimate Decreased (Normal) L 05/22/18 04:17 PT 13.6 Seconds (9.4-12.1) H 05/21/18 16:05 Sodium 134 mEq/L (136-145) L 05/22/18 04:17 Potassium 3.3 mEq/L (3.5-5.1) L 05/22/18 04:17 Chloride 110 mEq/L (98-107) H 05/22/18 04:17 Glucose 114 mg/dL (70-105) H 05/22/18 04:17 Calculated Osmolality 277 (280-300) L 05/22/18 04:17 Calcium 8.5 mg/dL (8.6-10.3) L 05/22/18 04:17 Phosphorus 1.9 mg/dL (2.7-4.5) L 05/21/18 16:33 Total Bilirubin 2.1 mg/dL (0.3-1.0) H 05/21/18 16:33 Direct Bilirubin 0.6 mg/dL (0.0-0.2) H 05/21/18 16:33 Indirect Bilirubin 1.5 mg/dL (0.0-1.2) H 05/21/18 16:33 C-Reactive Protein 202 mg/L (Less than 10) H 05/21/18 16:33 Urine Clarity Cloudy (Clear) A 05/21/18 16:48 Urine Protein 100 mg/dL (Neg-Trace) H 05/21/18 16:48 Urine Ketones 15 mg/dL (Negative) H 05/21/18 16:48 Urine Nitrite Positive (Negative) A 05/21/18 16:48 Urine Bilirubin Small (Negative) H 05/21/18 16:48 Ur Leukocyte Esterase Moderate (Negative) H 05/21/18 16:48 Urine Microscopic RBC 3-5 per hpf (0-3) H 05/21/18 16:48 Urine Microscopic WBC 15-30 per hpf (0-3) H 05/21/18 16:48 Ur Squamous Epith Cells Many per lpf (None-Few) H 05/21/18 16:48 Urine Mucus Many (Few) H 05/21/18 16:48 Ur Culture Indicated? NO. (NO) A 05/21/18 16:48 H & H 05/22/18 Range/Units 04:17 Hgb 14.3 (12.9-16.9) g/dL Hct 40.0 (37.5-50.1) % All other labs normal. Consult Discharge Plan - Plan Instructions: Amoxicillin/Clavulanate Potassium (By mouth), Colchicine (By mouth), Cellulitis (DC) Referrals: Boyd Chacon MD [Primary Care Provider] - (The office will call to schedule your follow up appointment) Alberto Ragsdale DPM [Partnered Physician] - (The office will call to schedule follow up appointment) Prescriptions: Amoxicillin/Clavulanate [Augmentin] 875 mg PO BIDWM #20 tablet Colchicine [Colcrys] 0.6 mg PO BID #60 tablet
[2018-05-23] MEDS: Piperacillin/Tazobactam 3.375 GM in 0.9 % Sodium Chloride Mini Bag 100 ML IVPB SCH ×2 (00:47→07:37)
[2018-05-23] MEDS: *HR* Heparin 5,000 UNIT/ML VIAL SQ SCH (05:37)
[2018-05-23 06:57] LABS: Basophils # 0.1 K/mcL (0.0-0.2); Basophils % 0.5 %; Eosinophils # 0.4 K/mcL (0.0-0.6); Eosinophils % 3.5 %; Hematocrit 41.8 % (37.5-50.1); Hemoglobin 15.2 g/dL (12.9-16.9); Immature Granulocytes % 0.5 % (0-4); Lymphocytes # 0.9 K/mcL (0.6-4.6); Lymphocytes % 8.3 %; Mean Corpuscular HGB Conc 36.4 g/dL (31.6-35.5); Mean Corpuscular Hemoglobin 33.9 pg (28.0-33.3); Mean Corpuscular Volume 93.3 fL (83.0-100.0); Mean Platelet Volume 10.2 fL (9.4-12.4); Monocytes # 0.9 K/mcL (0.0-1.3); Monocytes % 8.9 %; Platelet Count 157 K/mcL (140-400); Red Blood Count 4.48 M/mcL (4.19-5.50); Red Cell Distribution Width 12.2 % (11.5-14.5); Segmented Neutrophils % 78.3 %
[2018-05-23 07:21] LABS: BUN/Creatinine Ratio 12 (6-26); Blood Urea Nitrogen 9 mg/dL (8-23); Carbon Dioxide 26 mEq/L (23-29); Chloride 103 mEq/L (98-107); Glucose 108 mg/dL (70-105); Osmolality,Calculated 285 (280-300); Potassium 3.2 mEq/L (3.5-5.1); Sodium 138 mEq/L (136-145); eGFR For African Americans > 60 (> 60); eGFR For Non-African Americans > 60 (> 60)
[2018-05-23] MEDS: Omega-3/Dha/Epa/Fish Oil [Fish Oil 1,000 Mg Softgel] PO SCH (07:34)
[2018-05-23] MEDS: Bisoprolol/HCTZ 10/6.25 TABLET PO SCH (07:37)
[2018-05-23] MEDS: Fenofibrate 54 MG TABLET PO SCH (07:37)
[2018-05-23] MEDS: amLODIPine 5 MG TABLET PO SCH (07:37)
[2018-05-23] MEDS: Colchicine 0.6 MG TABLET PO SCH (07:37)
[2018-05-23] MEDS: POTAS PO SCH (07:37)
[2018-05-23] MEDS: Multivit/Ca/Min/Fe/FA 1 TAB TABLET PO SCH (07:38)
[2018-05-23 11:07] VITALS: BP 144/83
--- NOTE | 2018-05-23 12:15 | Discharge Summary ---
- NOTES TO OUTPATIENT PROVIDER Notes to Outpatient Provider: f/u with podiatry within 1-2 weeks. f/u with PCP within a week. Date of Encounter: 05/23/18 Time of Encounter: 12:11 - Discharge Diagnosis (1) Cellulitis Priority: Primary Status: Acute Assessment and Plan: 62-year-old male with past medical history of gout presented with left leg redness, pain and the left foot swelling. Patient had a long history of gout with tophi. He had a tophi removal years ago ( at the left Achilles tendon), ever since he frequently had left leg cellulitis. - Cellulitis was suspected, patient was started on Zosyn and vancomycin on admission, WBC normal for 2 days. - Left big toe swelling and redness, suspicious for gout flare, patient started on colchicine, uric acid 7.3, we will will increase the dose of allopurinol to achieve uric acid level less than 6.5. bedside I+D performed by podiatry. symptoms relieved after the procedure. - ABX changed to Augmentin upon discharge, he will take oral abx for 10 more days. Qualifiers: Site of cellulitis: extremity Site of cellulitis of extremity: lower extremity Laterality: left Qualified Code(s): L03.116 - Cellulitis of left lower limb (2) Gout Priority: Secondary Status: Chronic Assessment and Plan: - Described as above. 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 Berry is a 62 year old male 62-year-old male with past medical history of gout presented with left leg redness, pain and the left foot swelling. Patient had a long history of gout with tophi. He had a tophi removal years ago ( at the left Achilles tendon), ever since he frequently had left leg cellulitis. Upon arrival, patient left big toe was found swollen with several areas of dark skin, skin redness and a yellowish discharge noted on the left leg. Cellulitis and gout were diagnosed. Patient was started on Zosyn and vancomycin initially , WBC was normalized on the second hospital day. Podiatry performed bedside incision and drainage on the left big toe, bloody pus came out, and was dressed. the dressing change instructions was given by podiatry. She was started on colchicine 0.6 mg twice a day with relief of pain. Uric acid 7.3, allopurinol was increased from 100mg daily to 200 mg daily. The goal of uric acid level should be less than 6.5. Upon discharge, patient reported improved symptoms including swelling and pain, he is able to ambulate. IV antibiotics was changed to oral. He was instructed to follow-up with podiatry within 1-2 weeks, follow-up with primary care physician within one week. Discharge discussed with: patient, family Time spent discussing smoking cessation with patient: more than 10 minutes - Time Spent with Patient Total time spent providing and/or coordinating discharge services: Greater than 30 minutes - Discharge Medications Prescriptions: Amoxicillin/Clavulanate [Augmentin] 875 mg PO BIDWM #20 tablet Colchicine [Colcrys] 0.6 mg PO BID #60 tablet Home Medications: Amlodipine Besylate 10 mg PO DAILY 05/21/18 [History] Bisoprolol/HCTZ 10/6.25 [Ziac 10/6.25] 1 tab PO DAILY 05/21/18 [History] Fenofibrate [Tricor] 54 mg PO DAILY 05/21/18 [History] Multivit-Min/FA/Lycopen/Lutein [A Thru Z Select Multivit Tab] 1 tab PO DAILY [History] [place]-3/Dha/Epa/Fish Oil [Fish Oil 1,000 mg Softgel] 1 cap PO DAILY 05/21/18 [ History] Potassium Chloride [Klor-Con 10] 10 meq PO DAILY 05/21/18 [History] Allopurinol [Zyloprim 100 MG] 200 mg PO DAILY tablet 05/23/18 [Rx] Amoxicillin/Clavulanate [Augmentin] 875 mg PO BIDWM #20 tablet 05/23/18 [Rx] Colchicine [Colcrys] 0.6 mg PO BID #60 tablet 05/23/18 [Rx] Ibuprofen [Motrin] 600 mg PO Q8HR PRN #0 tablet 05/23/18 [Rx] Allergies/Adverse Reactions: 3 Allergy/AdvReac Type Severity Reaction Status Date / Time lisinopril Allergy Hives Verified 05/21/18 15:51 Date of admission: 05/21/18 17:46 Primary care physician: Boyd Chacon MD Consults: 05/22/18 15:57 Consult to Podiatry [CONS] Routine Consulting Provider: [facility] Reason for Consult: gout and cellulitis (Dr. Ragsdale) Call Completed: No Anticipated date of discharge: 05/23/18 - Constitutional Vitals: Temp Pulse Resp BP Pulse Ox 98.4 F 76 15 144/83 94 05/23/18 11:06 05/23/18 11:06 05/23/18 11:06 05/23/18 11:06 05/23/18 11:06 General appearance: Present: A&O X 3 Exam: PHYSICAL EXAMINATION: GENERAL APPEARANCE: The patient is alert, oriented and in no acute distress. HEENT: Head is normocephalic. The sinuses are nontender. Pupils are equal and reactive. The nares are patent. Oropharynx clear without lesions. NECK: Supple without lymphadenopathy. HEART: Regular rate and rhythm. LUNGS: No crackles or wheezes are heard. ABDOMEN: Soft, nontender, nondistended with good bowel sounds heard. Inguinal area is normal. EXTREMITIES: Left big toe dressing dry and intact. NEUROLOGICAL: Gross nonfocal. SKIN: Warm and dry without any rash. - Patient Status Disposition: Home, Self-Care Condition: Fair Overall status at discharge: patient is progressing back to baseline - Discharge Instructions Follow Up With: Boyd Chacon MD [Primary Care Provider] - - Diet and Activity Activity: increase activity as tolerated Diet: regular diet
== END 2018-05-23 13:03 | disposition home or self-care (01) ==
LOC: EMEROO 15:50 → 3BNU 15:50
PROVIDERS: ADMIT Student in an Organized Health Care Education/Training Program; ATTEND Student in an Organized Health Care Education/Training Program